=== PATIENT | female | born 1965 | race African-American/Black ===

== ENCOUNTER 2018-05-12 07:10 | Day surgery (SDC) | payer SELFPAY ==
[2018-05-01 13:01] VITALS: BMI 31.1
[2018-05-12] MEDS ORDERED: HEPARIN NA (PORCINE) 5,000 UNITS/ML 1ML VIAL ONE (08:02)
[2018-05-12] MEDS ORDERED: PROPOFOL 20 ML ONE ×4 (10:00)
[2018-05-12] MEDS ORDERED: fentaNYL CITRATE 250 MCG/5 ML VIAL ONE ×2 (10:00→13:00)
[2018-05-12] MEDS ORDERED: MIDAZOLAM HCL 2 MG/2 ML SINGLE DOSE VIAL ONE (10:01)
[2018-05-12] MEDS ORDERED: ROCURONIUM BROMIDE 50 MG/5 ML VIAL ONE ×2 (10:01→12:33)
[2018-05-12] MEDS ORDERED: SCOPOLAMINE HYDROBROMIDE 1 PATCH PATCH.TD72 ONE (10:07)
[2018-05-12] MEDS ORDERED: LIDOCAINE HCL 1%, 10 MG/ML (20ML VIAL) ONE (10:25)
[2018-05-12] MEDS ORDERED: EPINEPHrine/PF 1 MG/1 ML (1:1,000) AMPULE ONE (10:26)
[2018-05-12] MEDS ORDERED: DEXAMETHASONE SOD PHOSPHATE 4 MG/1 ML VIAL ONE (11:36)
[2018-05-12] MEDS ORDERED: ONDANSETRON 4 MG/2 ML VIAL ONE ×2 (11:36→15:59)
[2018-05-12] MEDS ORDERED: LIDOCAINE HCL 2% JELLY (5 ML/TUBE) ONE (11:36)
[2018-05-12] MEDS ORDERED: LIDOCAINE HCL/PF 2% SDV 5ML VIAL ONE (11:36)
[2018-05-12] MEDS ORDERED: ceFAZolin SODIUM 1 GM VIAL ONE (11:36)
--- NOTE | 2018-05-12 13:04 | OP ---
Operative Note - Note: Operative Date: 05/12/18 Pre-Operative Diagnosis: supraumbilical/ ventral incisional hernia Operation: supra umbilical/ ventral incisional hernia repair with mesh Findings: supraumbilical ventral incisional hernia, containing preperitoneal fat, [id number] , repaired with extraperitoneal underlay with a bard small ventralex Implants: Bard ventralex small Post-Operative Diagnosis: Same as Pre-op Surgeon: Heriberto Nesbitt Director Of Culture: Salo Corado Anesthesia: General Estimated Blood Loss (mls): 1 Fluid Volume Replaced (mls): 200 Operative Report Dictated: Yes
[2018-05-12] MEDS ORDERED: GLYCOPYRROLATE 0.2 MG/1 ML VIAL ONE (13:18)
[2018-05-12] MEDS ORDERED: NEOSTIGMINE METHYLSULFATE 0.5 MG/ML - 10 ML MDV ONE (13:18)
[2018-05-12] MEDS ORDERED: BUPIVACAINE HCL/PF 0.5% (5MG/ML) 10 ML VIAL ONE (13:26)
[2018-05-12] MEDS ORDERED: ePHEDrine SULFATE 50 MG/1 ML AMPULE ONE (14:00)
[2018-05-12] MEDS ORDERED: BUPIVACAINE HCL/PF 0.5% (5MG/ML) 10 ML VIAL IJ ONE (14:09)
[2018-05-12] MEDS ORDERED: NITROGLYCERIN 2% OINTMENT - 1GM PACKET TD ONE ×3 (14:38→14:49)
[2018-05-12] MEDS ORDERED: BACITRACIN 15 GM TUBE TOPICAL OINTMENT ONE (14:52)
[2018-05-12] MEDS ORDERED: ONDANSETRON 4 MG/2 ML VIAL IVPB PRN (15:06)
[2018-05-12] MEDS ORDERED: morphine CARPU-JECT 2 MG/1 ML DISP.SYRIN SQ PRN (15:08)
[2018-05-12] MEDS ORDERED: oxyCODONE HCL 5 MG TABLET PO PRN (15:11)
[2018-05-12] MEDS ORDERED: PROMETHAZINE HCL 25 MG/1 ML VIAL IVPB PRN (15:11)
[2018-05-12] MEDS ORDERED: ONDANSETRON 4 MG/2 ML VIAL IVPUSH PRN (15:11)
[2018-05-12] MEDS ORDERED: LACTATED RINGERS SOLUTION 1,000 ML IV SCH (15:15)
[2018-05-12] MEDS: oxyCODONE HCL 5 MG TABLET PO PRN (19:56)
[2018-05-12] MEDS: CEFAZOLIN 1 GM/D5W 1 GRAM/50 ML BAG IVPB SCH (21:20)
[2018-05-13] MEDS: CEFAZOLIN 1 GM/D5W 1 GRAM/50 ML BAG IVPB SCH ×2 (03:08→08:26)
[2018-05-13] MEDS: oxyCODONE HCL 5 MG TABLET PO PRN (06:04)
--- NOTE | 2018-05-13 07:30 | PN ---
Progress Note (short form) - Note Progress Note: All tissues viable, healing well, HANK minimal, ambulating, negar po, pain well controlled. OK for discharge
[2018-05-13] MEDS ORDERED: HEPARIN NA (PORCINE) 5,000 UNITS/ML 1ML VIAL SQ SCH (08:00)
[2018-05-13 12:20] VITALS: BP 126/61; PULSE 97; TEMP 99.6
--- NOTE | 2018-05-13 16:32 | OP ---
DATE OF OPERATION: 05/12/2018 ATTENDING SURGEON: Heriberto Nesbitt M.D. PRE & POST OPERATIVE DIAGNOSIS: Ventral incisional supraumbilical hernia PROCEDURE: Repair of ventral incisional hernia with mesh ANESTHESIA: General. ESTIMATED BLOOD LOSS: 2 mL IMPLANT: BARD Ventralex round mesh, size small INDICATION: Patient is a 52-year-old female having a cosmetic abdominoplasty and rectal plication, was found to have a supraumbilical hernia that appeared to be a ventral incisional hernia given the presence of a previous scar at port site on the supraumbilical position in the midline. She was counseled regarding risks, benefits, and alternatives to surgical repair in conjunction with her cosmetic procedure. She signed informed consent and she was taken for the procedure. DESCRIPTION OF PROCEDURE: Patient was brought to the operating room, placed in supine position on the operating table. Lower extremities had SCDs. Patient received intravenous antibiotics prior to the start of surgery. A formal timeout was done to identify the operative procedure, and a duly signed consent was placed in the chart. After formal timeout, Dr. Corado scribed his incision for his abdominoplasty and proceeded with an entry in the supraumbilical position to allow his adjacent scar to expose the supraumbilical port site hernia. With this incision made by Dr. Corado, we began to dissect down to the stalk of the base of the supraumbilical port site hernia towards the base of the fascia. Once the midline fascia could be identified at the base it was encircled, and the sac containing hernia was then circumscribed and reduced into the abdomen. It appeared to be only preperitoneal fat. There was no intestinal incarceration or strangulation of this hernia. We began then to once involute it, we began to create a plane for mesh repair. The Ventralex from Bard size small circular with the reinforced ring was then interposed into the hernia defect which appeared to be approximately 1 x 1 cm in area. Once completely reduced and with the mesh in place, the mesh was tacked into position using 2-0 Vicryl in interrupted fashion along the rim of the mesh. Care was taken to allow the Prolene sutures to capture the mesh in position, and once the mesh was in position, the wings were cut to size and laid down with additional 2-0 Prolene stitch. This was done at the 4 positions, 12, 6, 3 and 9 on the clock dial, at which point the site was irrigated, and we terminated that part of the general surgery procedure. Dr. Corado continued with his abdominoplasty. MD TAMMI [id number] MTDD
--- NOTE | 2018-05-14 16:19 | PATH ---
Surgical Pathology Report Patient Name: RORY COOPER [facility]. Rec. #: [id number] /Age/Gender: 1965 (Age: 52) / F Account: [id number] Location: [facility], [facility]–1983 AMBULATORY Taken: 05/12/2018 Received: 05/13/2018 Reported: 05/14/2018 Physicians: Salo Corado Specimen(s) Received ABDOMINAL SKIN AND FAT Clinical History Abdominal hernia, cosmetic Final Diagnosis ABDOMINAL SKIN AND FAT, ABDOMINOPLASTY: UNREMARKABLE SKIN AND FIBROADIPOSE TISSUE. MACROSCOPIC DIAGNOSIS. Electronically Signed Joanie Antoine M.D. Gross Description Received in formalin labeled "abdominal skin and fat," is a 379 g, 19.0 x 15.0 x 3.2 cm aggregate of multiple unoriented portions of yellow, lobulated adipose tissue. The largest portion is surfaced by brown, unremarkable skin. Sectioning reveals white fibrous tissue and adipose tissue. No sections are submitted, gross only. /05/13/2018 saudi05/13/2018
== END 2018-05-13 15:40 | disposition home or self-care (01) ==
LOC: FASU 07:10 → FM/S 16:40 → FASU 05-13 15:40
PROVIDERS: ATTEND Plastic Surgery
PROC: 0J083ZZ Alteration of Abdomen Subcutaneous Tissue and Fascia, Percutaneous Approach (ICD-10-PCS; 2018-05-12)
PROC: 0WUF0JZ Supplement Abdominal Wall with Synthetic Substitute, Open Approach (ICD-10-PCS; 2018-05-12)
PROC: 0J080ZZ Alteration of Abdomen Subcutaneous Tissue and Fascia, Open Approach (ICD-10-PCS; principal; 2018-05-12 11:41)
DX: Z41.1 Encounter for cosmetic surgery (principal); K43.2 Incisional hernia without obstruction or gangrene
CPT/HCPCS: 88300-TC; 94760; J1644